=== PATIENT | male | born 1975 | race Caucasian/White ===

== ENCOUNTER 2022-03-07 22:24 | Emergency (ER) | payer SELFPAY ==
[~2022-03-07] VITALS: Ht 172.7 cm; Wt 72.7 kg
[2022-03-07 23:11] VITALS: TEMP 98.2
[2022-03-07] MEDS ORDERED: AMOXICILLIN 8751 TAB PO (23:36)
[2022-03-08 00:24] VITALS: BP 141/81; PULSE 82
== END 2022-03-08 00:25 | disposition home or self-care (01) ==
LOC: COL.ER 22:24
DX: K05.30 Chronic periodontitis, unspecified (principal)